=== PATIENT | female | born 1965 | race Caucasian/White ===

== ENCOUNTER → 2023-12-03 16:11 | Outpatient (CLI) | payer OTHER, SELFPAY ==
[2023-12-03 17:25] LABS: Influenza A - CEPHEID Flu A NEGATIVE (NEGATIVE); Influenza B - CEPHEID Flu B NEGATIVE (NEGATIVE); Respiratory Syncytial Virus Negative (Negative)
[2023-12-03 17:51] LABS: COVID-19 CEPHEID 4-PLEX PCR Negative (Negative)
== END ==
PROVIDERS: Visit Provider Physician Assistant Surgical
DX: R05.9 Cough, unspecified (principal)
CPT/HCPCS: 0241U

== ENCOUNTER → 2023-12-03 16:53 | Outpatient (CLI) | payer OTHER, SELFPAY ==
--- NOTE | 2023-12-03 16:56 | DI.RAD.S_ITS ---
PROCEDURE: XR CHEST 2V INDICATIONS: SOB, cough TECHNIQUE: 2 views of the chest were acquired. COMPARISON: None. FINDINGS: Surgical changes and devices: None. Lungs and pleura: Right middle lobe calcified granulomas with lateral out cysts and or infiltrate Mediastinum: Mediastinal contours are normal. Heart size is normal. Bones and chest wall: No suspicious bony abnormalities. Soft tissues appear unremarkable. IMPRESSION: Right middle lobe atelectasis and or infiltrate Calcified granulomas Approved by: Gregorio Anthony M.D. on 12/03/2023 at 16:30
== END ==
PROVIDERS: Referring Provider Physician Assistant Surgical; Visit Provider Physician Assistant Surgical
DX: J98.4 Other disorders of lung (principal); R06.02 Shortness of breath; R05.9 Cough, unspecified
CPT/HCPCS: 0241U; 71046

== ENCOUNTER → 2024-02-20 11:47 | Outpatient (CLI) | payer BC, SELFPAY ==
[2024-02-20 12:47] LABS: Add Manual Diff / Slide Review NO; Basophils Absolute Auto 100 /uL (0-100); Basophils Percent Auto 0.9 % (0-2); Eosinophils Absolute Auto 100 /uL (0-450); Hematocrit 39.8 % (36-46); Lymphocytes Absolute Auto 1500 /uL (1100-4500); Lymphocytes Percent Auto 22.8 % (25-40); Mean Corpuscular HGB Conc 32.7 % (30-36); Mean Corpuscular Hemoglobin 29.5 PG (26-34); Mean Corpuscular Volume 90.2 fL (80-100); Monocytes Absolute Auto 600 /uL (0-900); Monocytes Percent Auto 8.5 % (3-14); Neutrophils Absolute Auto 4400 /uL (1500-7000); Neutrophils Percent Auto 65.8 % (50-75); Platelet Count 388 X10^3/uL (150-400); Red Blood Cell Count 4.41 X10^6/uL (4.0-5.2); Red Cell Distribution Width 14.6 % (11.6-14.8); White Blood Cell Count 6.8 X10^3/uL (4.5-11.0)
[2024-02-20 13:21] LABS: Alanine Aminotransferase 21 IU/L (<35); Albumin 4.1 g/dL (3.5-5.0); Albumin Globulin Ratio 1.3 (1.0-2.8); Alkaline Phosphatase 114 U/L (38-126); Aspartate Aminotransferase 29 IU/L (14-36); BUN Creatinine Ratio 11.7 (6-22); Bilirubin Total 0.7 mg/dL (0.2-1.3); Blood Urea Nitrogen 12 mg/dL (7-17); Calcium 10.9 mg/dL (8.4-10.2); Carbon Dioxide 27 mmol/L (22-32); Chloride 103 mmol/L (98-107); Cholesterol 312 mg/dL (140-199); Estimated Glomerular Filt Rate > 60 mL/min (>60); Globulin 3.1 g/dL (1.7-4.1); Glucose 94 mg/dL (80-110); HDL Cholesterol 101 mg/dL (40-60); HEMOLYSIS < 15 (0-50); LDL Cholesterol Calculated 198 mg/dL (<100); Potassium 4.6 mmol/L (3.4-5.1); Sodium 137 mmol/L (137-145); Total Protein 7.2 g/dL (6.3-8.2); Triglycerides 67 mg/dL (35-150)
[2024-02-20 13:47] LABS: Thyroid Stimulating Hormone 1.38 uIU/mL (0.47-4.68)
== END ==
LOC: LAB 11:48
PROVIDERS: PCP Family Medicine; Referring Provider Family Medicine; Visit Provider Family Medicine
DX: E03.9 Hypothyroidism, unspecified (principal); F32.A Depression, unspecified; K21.9 Gastro-esophageal reflux disease without esophagitis; E66.9 Obesity, unspecified; F34.1 Dysthymic disorder; K21.00 Gastro-esophageal reflux disease with esophagitis, without bleeding
CPT/HCPCS: 36415; 80053; 80061; 84439; 84443; 85025

== ENCOUNTER → 2024-04-03 07:01 | Outpatient (CLI) | payer OTHER, SELFPAY ==
--- NOTE | 2024-04-03 07:03 | DI.MRI.S_ITS ---
PROCEDURE: MR HEAD/BRAIN WO/W CON INDICATIONS: evaluate meningiomas TECHNIQUE: Noncontrast axial T1 spin echo, axial T2 fast spin echo, sagittal and axial FLAIR, coronal T2 fast spin echo, axial gradient echo, axial diffusion and ADC through the brain. After the administration of contrast, axial and coronal and sagittal T1 spin echo with fat saturation through the brain. COMPARISON: [facility], CT, CT HEAD WITHOUT CONTRAST, 02/29/2024, 15:16. FINDINGS: Image quality: Excellent. CSF spaces: Basal cisterns are patent. No extra-axial fluid collections. Ventricles are normal in size and shape. Brain: Dural-based right frontal enhancing mass measuring 1.6 x 1.5 x 1.6 centimeters. No midline shift. No intracranial. There is mild cerebral volume loss for age. There is minimal periventricular white matter chronic small vessel ischemic change. The brainstem appears normal. Diffusion-weighted images demonstrate no acute infarct. No chronic ischemic insults. Normal intravascular flow voids are present. Skull and face: Calvarial marrow is normal in signal. Orbits appear normal. Sinuses: Sinuses and mastoids appear clear. IMPRESSION: Enhancing right frontal dural-based mass measuring 1.6 centimeters is most consistent with a meningioma. Otherwise, age-appropriate appearance of the brain. Dictated by: Jonas Cain M.D. on 04/03/2024 at 11:18 Approved by: Jonas Cain M.D. on 04/03/2024 at 11:29
== END ==
PROVIDERS: PCP Family Medicine; Referring Provider Family Medicine; Visit Provider Family Medicine
DX: D32.9 Benign neoplasm of meninges, unspecified (principal)
CPT/HCPCS: 70553; A9579

== ENCOUNTER → 2025-01-04 10:33 | Outpatient (CLI) | payer OTHER, SELFPAY ==
--- NOTE | 2025-01-04 10:35 | DI.RAD.S_ITS ---
PROCEDURE: XR CHEST 2V INDICATIONS: Persistent cough TECHNIQUE: 2 views of the chest were acquired. COMPARISON: [facility], CR, XR CHEST 2V, 12/03/2023, 16:59. FINDINGS: Surgical changes and devices: None. Lungs and pleura: Lungs are clear. No pleural effusions or pneumothorax. Mediastinum: Mediastinal contours are normal. Heart size is normal. Bones and chest wall: No suspicious bony abnormalities. Soft tissues appear unremarkable. IMPRESSION: No acute cardiopulmonary abnormality is seen. Dictated by: Kishan Campos M.D. on 01/05/2025 at 3:23 Approved by: Kishan Campos M.D. on 01/05/2025 at 3:58
== END ==
PROVIDERS: PCP Family Medicine; Referring Provider Family Medicine; Visit Provider Family Medicine
DX: J40 Bronchitis, not specified as acute or chronic (principal)
CPT/HCPCS: 71046

== ENCOUNTER → 2025-01-11 08:05 | Outpatient (CLI) | payer OTHER, SELFPAY ==
--- NOTE | 2025-01-11 08:05 | DI.MRI.S_ITS ---
PROCEDURE: MR HEAD/BRAIN W CON INDICATIONS: evaluate meningiomas TECHNIQUE: By the request of the referring physician, only postcontrast images were acquired. COMPARISON: [facility], MR, MR HEAD/BRAIN WO/W CON, 04/03/2024, 7:21. FINDINGS: Image quality: Diagnostic, although noncontrast images are not included. There is again seen an enhancing extra-axial mass along the superior aspect of the right frontal lobe, as on series 5, image 139 and on series 7 image 115, measuring 16 x 15 mm in greatest axial dimension, with a craniocaudal extent of 13 mm. Previously, this measured 16 x 15 x 16 mm. No additional enhancing masses are seen. Negative for hydrocephalus. No extra-axial fluid collections are seen. The basal cisterns are patent. The cerebellar tonsils demonstrate a normal shape and are not abnormally low lying. Mild mucosal thickening can be seen within the anterior ethmoid air cells. IMPRESSION: Stable 16 mm right frontal meningioma. Dictated by: Bo Noble M.D. on 01/11/2025 at 9:33 Approved by: Bo Noble M.D. on 01/11/2025 at 9:36
== END ==
LOC: MRI 08:05
PROVIDERS: PCP Family Medicine; Referring Provider Family Medicine; Visit Provider Family Medicine
DX: D32.9 Benign neoplasm of meninges, unspecified (principal)
CPT/HCPCS: 70552; A9579